=== PATIENT | male | born 1995 | race Two or more races ===

== ENCOUNTER 2021-07-01 22:56 | Emergency (ER) | payer SELFPAY ==
[~2021-07-01] VITALS: Ht 170.2 cm; Wt 63.5 kg
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
[2021-07-01] MEDS ORDERED: IBUPROFEN 400 MG TABLET ONE (23:24)
[2021-07-01] MEDS ORDERED: IBUPROFEN 400 MG TABLET PO ONE (23:30)
[2021-07-01] MEDS ORDERED: HYDR-3972 PO (23:56)
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
[2021-07-02 00:20] VITALS: BP 134/62
== END 2021-07-02 00:20 | disposition home or self-care (01) ==
LOC: ER 22:59
DX: S62.392A Other fracture of third metacarpal bone, right hand, initial encounter for closed fracture (principal); S80.02XA Contusion of left knee, initial encounter; V49.59XA Passenger injured in collision with other motor vehicles in traffic accident, initial encounter; Y93.89 Activity, other specified; Y92.413 State road as the place of occurrence of the external cause; Y99.8 Other external cause status
CPT/HCPCS: 73110; 73564-TC